=== PATIENT | female | born 1945 | race African-American/Black ===

== ENCOUNTER 2016-12-11 10:04 | Outpatient (CLI) | payer MEDICARE ==
[2016-12-11 10:57] LABS: ALT (SGPT) 30 U/L (8-55); AST (SGOT) 25 U/L (5-34); Albumin 4.1 g/dL (3.4-4.8); Alkaline Phosphatase 92 U/L (40-150); Anion Gap 17 mmol/L (10-20); BUN (Urea Nitrogen) 14 mg/dL (9.8-20.1); Bilirubin, Total 0.5 mg/dL (0.2-1.2); Calc. Creatinine Clearance 0 mL/min (70-130); Calcium 9.2 mg/dL (7.8-10.44); Cardiac Risk 2.6 (Less than 4.5); Chloride 108 mmol/L (98-107); Cholesterol 128 mg/dl (< 200 Desired); Estimated GFR-MDRD 89; Globulin 2.3 g/dL (2.4-3.5); Glucose 129 mg/dL (80-115); HDL Cholesterol 50 mg/dL (>60 Neg Risk); LDL Cholesterol, Calculated 69 mg/dL; Potassium 4.6 mmol/L (3.5-5.1); Protein, Total 6.4 g/dL (6.0-8.3); Sodium 147 mmol/L (136-145); Triglycerides 46 mg/dL (Less than 150)
[2016-12-11 11:24] LABS: Carbon Dioxide 27 mmol/L (23-31)
[2016-12-11 11:41] LABS: Hemoglobin A1c 5.5 % (4.0-6.0)
[2016-12-11 12:58] LABS: #Basophils 0.1 thou/uL (0.0-0.2); #Eosinphils 0.1 thou/uL (0.0-0.7); #Lymphocytes 0.9 thou/uL (1.20-3.40); #Monocytes 0.4 thou/uL (0.11-0.59); #Neutrophils 6.2 thou/uL (1.40-6.50); %Basophils 0.7 % (0.0-1.0); %Eosinophils 1.2 % (0.0-10.0); %Lymphocytes 11.7 % (21.0-51.0); %Monocytes 5.7 % (0.0-10.0); %Neutrophils 80.7 % (42.0-75.0); Hemoglobin 11.7 g/dL (12.0-16.0); Mean Corpuscular HGB CONC 35.1 g/dL (32.0-36.0); Mean Corpuscular Hemoglobin 32.5 pg (27.0-31.0); Mean Corpuscular Volume 92.5 fl (81.0-99.0); Mean Platelet Volume 10.4 fL (7.4-10.4); PLT Morphology Comment Appears Decreased; Platelet Count 32 thou/uL (130-400); RBC Morphology Normal; White Blood Cell (WBC) Count 7.6 thou/uL (4.8-10.8)
== END 2016-12-11 10:05 | disposition home or self-care (01) ==
LOC: HPCALD 10:04
PROVIDERS: ATTEND Family Medicine
DX: E78.5 Hyperlipidemia, unspecified (principal); E11.9 Type 2 diabetes mellitus without complications; I10 Essential (primary) hypertension
CPT/HCPCS: 36415; 80053; 80061; 83036; 85025

== ENCOUNTER 2018-03-15 10:49 | Inpatient (IN) | payer MEDICARE ==
[2018-03-15] MEDS ORDERED: Ondansetron ODT 4 MG TAB PO PRN (16:28)
[2018-03-15] MEDS ORDERED: Acetaminophen 325 MG TAB PO PRN (16:44)
[2018-03-15 17:39] VITALS: BMI 36.1
[2018-03-15] MEDS: Aspirin 81 mg Enteric Coated Tablet PO SCH (21:55)
[2018-03-15] MEDS: Famotidine 20 MG TAB PO SCH (21:55)
[2018-03-15] MEDS: Naproxen 500 MG TAB PO SCH (21:55)
[2018-03-16] MEDS: Naproxen 500 MG TAB PO SCH ×3 (05:26→21:41)
[2018-03-16] MEDS: Famotidine 20 MG TAB PO SCH ×2 (09:08→21:41)
[2018-03-16] MEDS: Amlodipine 10 MG TAB PO SCH (09:22)
[2018-03-16] MEDS: Aspirin 81 mg Enteric Coated Tablet PO SCH ×2 (09:22→21:41)
[2018-03-16] MEDS: Furosemide 20 MG TAB PO SCH (09:22)
[2018-03-16] MEDS: Atorvastatin Calcium 10 MG TAB PO SCH (09:23)
[2018-03-16] MEDS: HYDROcodone/Acetaminophen 10/325 mg Tablet PO PRN (12:59)
[2018-03-16] MEDS: Polyethylene Glycol 3350 17 GM Packet PO PRN (21:41)
[2018-03-17] MEDS: Naproxen 500 MG TAB PO SCH ×3 (05:27→21:10)
[2018-03-17] MEDS: Famotidine 20 MG TAB PO SCH ×2 (10:07→20:59)
[2018-03-17] MEDS: Furosemide 20 MG TAB PO SCH (10:08)
[2018-03-17] MEDS: Aspirin 81 mg Enteric Coated Tablet PO SCH ×2 (10:08→20:59)
[2018-03-17] MEDS: Amlodipine 10 MG TAB PO SCH (10:08)
[2018-03-17] MEDS: Atorvastatin Calcium 10 MG TAB PO SCH (10:08)
[2018-03-17] MEDS: Polyethylene Glycol 3350 17 GM Packet PO PRN (11:27)
[2018-03-18] MEDS: Naproxen 500 MG TAB PO SCH ×3 (05:11→21:45)
[2018-03-18] MEDS: Aspirin 81 mg Enteric Coated Tablet PO SCH ×2 (09:13→21:44)
[2018-03-18] MEDS: Famotidine 20 MG TAB PO SCH ×2 (09:14→21:45)
[2018-03-18] MEDS: Atorvastatin Calcium 10 MG TAB PO SCH (09:14)
[2018-03-18] MEDS: Amlodipine 10 MG TAB PO SCH (09:14)
[2018-03-18] MEDS: Furosemide 20 MG TAB PO SCH (09:14)
[2018-03-18] MEDS: HYDROcodone/Acetaminophen 10/325 mg Tablet PO PRN (10:41)
[2018-03-19] MEDS: Naproxen 500 MG TAB PO SCH ×3 (06:36→22:57)
[2018-03-19] MEDS: Amlodipine 10 MG TAB PO SCH (09:34)
[2018-03-19] MEDS: Atorvastatin Calcium 10 MG TAB PO SCH (09:35)
[2018-03-19] MEDS: Famotidine 20 MG TAB PO SCH ×2 (09:36→22:57)
[2018-03-19] MEDS: Furosemide 20 MG TAB PO SCH (09:36)
[2018-03-19] MEDS: Aspirin 81 mg Enteric Coated Tablet PO SCH ×2 (09:37→22:57)
[2018-03-19] MEDS: HYDROcodone/Acetaminophen 10/325 mg Tablet PO PRN (13:55)
[2018-03-20] MEDS: Naproxen 500 MG TAB PO SCH ×3 (05:46→22:05)
[2018-03-20] MEDS: Famotidine 20 MG TAB PO SCH ×3 (10:09→22:06)
[2018-03-20] MEDS: Atorvastatin Calcium 10 MG TAB PO SCH (10:09)
[2018-03-20] MEDS: Aspirin 81 mg Enteric Coated Tablet PO SCH ×2 (10:10→22:06)
[2018-03-20] MEDS: Amlodipine 10 MG TAB PO SCH (10:10)
[2018-03-20] MEDS: Furosemide 20 MG TAB PO SCH (10:12)
[2018-03-20] MEDS: HYDROcodone/Acetaminophen 10/325 mg Tablet PO PRN (10:22)
[2018-03-21] MEDS: Naproxen 500 MG TAB PO SCH ×2 (05:39→14:22)
[2018-03-21 06:22] VITALS: BP 134/56; TEMP 98.4
--- NOTE | 2018-03-21 07:56 | DIS ---
DATE OF ADMISSION: 03/15/2018 DATE OF DISCHARGE: 03/21/2018 DISCHARGE DIAGNOSES: Status post total right knee replacement, hypertension and hyperlipidemia. PROCEDURES: None. HOSPITAL COURSE: A 72-year-old female who was initially admitted to [facility] in [place] for a right total knee replacement via Dr. Simon transitioned to our facility to participate with physical therapy and occupational therapy. She is to follow up with Dr. Simon within the next couple of weeks. The patient has had minimal pain in regards to the total knee replacement. She has been able to successfully participate with physical therapy and occupational therapy in order to meet her goals to be able to transition to her home setting at this time. The patient will continue her rehab as an outpatient at [facility]. She is ambulatory and able to transfer successfully with minimal discomfort and is amenable to be discharged to her home setting. There were no complications during her stay. Her other comorbidities of hypertension, hyperlipidemia are stable as well. DISPOSITION: The patient will discharge home and follow up with myself in the clinic in a week and will have further physical therapy at [facility]. DISCHARGE MEDICATIONS: Include naproxen p.r.n., atorvastatin 20 mg p.o. at bedtime, aspirin 81 mg p.o. b.i.d., amlodipine/benazepril 10 mg/40 mg p.o. daily and Lasix 20 mg p.o. daily. MTDD
[2018-03-21] MEDS: Atorvastatin Calcium 10 MG TAB PO SCH (08:20)
[2018-03-21] MEDS: Famotidine 20 MG TAB PO SCH (08:20)
[2018-03-21] MEDS: Amlodipine 10 MG TAB PO SCH (08:20)
[2018-03-21] MEDS: Aspirin 81 mg Enteric Coated Tablet PO SCH (08:20)
[2018-03-21] MEDS: Furosemide 20 MG TAB PO SCH (08:20)
[2018-03-21] MEDS: HYDROcodone/Acetaminophen 10/325 mg Tablet PO PRN (08:33)
== END 2018-03-21 16:00 | disposition home health service (06) | DRG 561 ==
LOC: BURMED 15:05
PROVIDERS: ADMIT Family Medicine; ATTEND Family Medicine
DX: Z47.1 Aftercare following joint replacement surgery (principal); Z96.651 Presence of right artificial knee joint; I10 Essential (primary) hypertension; E78.5 Hyperlipidemia, unspecified
CPT/HCPCS: G8978-GP-CJ; G8979-GP-CI

== ENCOUNTER 2018-08-11 10:01 | Emergency (ER) | payer MEDICARE | END 2018-08-11 10:50 | disposition home or self-care (01) | LOC: BURERS 10:01 | DX: H60.91 Unspecified otitis externa, right ear (principal); I10 Essential (primary) hypertension; E78.5 Hyperlipidemia, unspecified | CPT/HCPCS: 99282 ==

== ENCOUNTER 2019-07-18 14:00 | Inpatient (IN) | payer MEDICARE ==
[2019-07-18] MEDS ORDERED: Polyethylene Glycol 3350 17 GM Packet PO PRN (17:44)
[2019-07-18] MEDS ORDERED: Ondansetron ODT 4 MG TAB PO PRN (17:44)
[2019-07-18] MEDS: Atorvastatin Calcium 10 MG TAB PO SCH (21:26)
[2019-07-18] MEDS: Famotidine 20 MG TAB PO SCH (21:26)
[2019-07-18] MEDS: Aspirin 81 mg Enteric Coated Tablet PO SCH (21:27)
[2019-07-18] MEDS: Naproxen 500 MG TAB PO SCH (21:27)
[2019-07-19] MEDS: Lisinopril 20 MG TAB PO SCH (08:54)
[2019-07-19] MEDS: Aspirin 81 mg Enteric Coated Tablet PO SCH ×2 (08:57→21:09)
[2019-07-19] MEDS: Amlodipine 10 MG TAB PO SCH (08:58)
[2019-07-19] MEDS: Naproxen 500 MG TAB PO SCH ×3 (08:59→21:10)
[2019-07-19] MEDS ORDERED: FLU VACC QS2019-20(6MOS UP)/PF 60 MCG/0.5 ML SYRINGE IM ONE (09:00)
[2019-07-19] MEDS: Cyanocobalamin (Vitamin B-12) 1,000 MCG TAB PO SCH (09:01)
[2019-07-19] MEDS: Famotidine 20 MG TAB PO SCH ×2 (09:01→21:09)
[2019-07-19] MEDS: Atorvastatin Calcium 10 MG TAB PO SCH (21:09)
[2019-07-20] MEDS: Naproxen 500 MG TAB PO SCH ×3 (08:39→20:32)
[2019-07-20] MEDS: Cyanocobalamin (Vitamin B-12) 1,000 MCG TAB PO SCH (08:39)
[2019-07-20] MEDS: Famotidine 20 MG TAB PO SCH ×2 (08:39→20:31)
[2019-07-20] MEDS: Amlodipine 10 MG TAB PO SCH (08:40)
[2019-07-20] MEDS: Aspirin 81 mg Enteric Coated Tablet PO SCH ×2 (08:40→20:32)
[2019-07-20] MEDS: Lisinopril 20 MG TAB PO SCH (08:40)
[2019-07-20] MEDS: Atorvastatin Calcium 10 MG TAB PO SCH (20:32)
[2019-07-21] MEDS: Lisinopril 20 MG TAB PO SCH (08:44)
[2019-07-21] MEDS: Famotidine 20 MG TAB PO SCH ×2 (08:46→20:38)
[2019-07-21] MEDS: Amlodipine 10 MG TAB PO SCH (08:46)
[2019-07-21] MEDS: Cyanocobalamin (Vitamin B-12) 1,000 MCG TAB PO SCH (08:47)
[2019-07-21] MEDS: Naproxen 500 MG TAB PO SCH ×3 (08:47→20:37)
[2019-07-21] MEDS: Aspirin 81 mg Enteric Coated Tablet PO SCH ×2 (08:47→20:38)
[2019-07-21] MEDS: HYDROcodone/Acetaminophen 5/325 mg Tablet PO PRN (08:47)
[2019-07-21 09:58] VITALS: BMI 36.6
[2019-07-21] MEDS: Atorvastatin Calcium 10 MG TAB PO SCH (20:37)
[2019-07-22] MEDS: Famotidine 20 MG TAB PO SCH ×2 (08:16→20:54)
[2019-07-22] MEDS: Naproxen 500 MG TAB PO SCH ×3 (08:17→20:54)
[2019-07-22] MEDS: Lisinopril 20 MG TAB PO SCH (08:17)
[2019-07-22] MEDS: Cyanocobalamin (Vitamin B-12) 1,000 MCG TAB PO SCH (08:17)
[2019-07-22] MEDS: Aspirin 81 mg Enteric Coated Tablet PO SCH ×2 (08:18→20:54)
[2019-07-22] MEDS: Amlodipine 10 MG TAB PO SCH (08:18)
[2019-07-22] MEDS: HYDROcodone/Acetaminophen 5/325 mg Tablet PO PRN (11:28)
[2019-07-22] MEDS: Atorvastatin Calcium 10 MG TAB PO SCH (20:54)
[2019-07-23] MEDS: Amlodipine 10 MG TAB PO SCH (09:19)
[2019-07-23] MEDS: Cyanocobalamin (Vitamin B-12) 1,000 MCG TAB PO SCH (09:19)
[2019-07-23] MEDS: Naproxen 500 MG TAB PO SCH ×3 (09:19→21:07)
[2019-07-23] MEDS: Famotidine 20 MG TAB PO SCH ×2 (09:19→21:08)
[2019-07-23] MEDS: Aspirin 81 mg Enteric Coated Tablet PO SCH ×2 (09:20→21:07)
[2019-07-23] MEDS: Lisinopril 20 MG TAB PO SCH (09:20)
[2019-07-23] MEDS: Atorvastatin Calcium 10 MG TAB PO SCH (21:08)
[2019-07-24] MEDS: Naproxen 500 MG TAB PO SCH ×3 (09:27→21:36)
[2019-07-24] MEDS: Famotidine 20 MG TAB PO SCH ×2 (09:27→21:35)
[2019-07-24] MEDS: Amlodipine 10 MG TAB PO SCH (09:28)
[2019-07-24] MEDS: Cyanocobalamin (Vitamin B-12) 1,000 MCG TAB PO SCH (09:28)
[2019-07-24] MEDS: Aspirin 81 mg Enteric Coated Tablet PO SCH ×2 (09:28→21:36)
[2019-07-24] MEDS: Lisinopril 20 MG TAB PO SCH (09:29)
[2019-07-24] MEDS: Atorvastatin Calcium 10 MG TAB PO SCH (21:36)
[2019-07-25 06:17] VITALS: TEMP 98.4
[2019-07-25] MEDS: Amlodipine 10 MG TAB PO SCH (08:36)
[2019-07-25] MEDS: Lisinopril 20 MG TAB PO SCH (08:42)
[2019-07-25] MEDS: Famotidine 20 MG TAB PO SCH (08:43)
[2019-07-25] MEDS: Cyanocobalamin (Vitamin B-12) 1,000 MCG TAB PO SCH (08:43)
[2019-07-25] MEDS: Aspirin 81 mg Enteric Coated Tablet PO SCH (08:43)
[2019-07-25] MEDS: Naproxen 500 MG TAB PO SCH (08:43)
[2019-07-25 08:44] VITALS: BP 125/60
--- NOTE | 2019-07-25 10:54 | DIS ---
DATE OF ADMISSION: 07/18/2019 DATE OF DISCHARGE: 07/25/2019 ADMISSION DIAGNOSIS: Status post left hip replacement with gait instability. SECONDARY DIAGNOSES: Hypertension, dyslipidemia, and vitamin D deficiency. PROCEDURES: None. HOSPITAL COURSE: This 73-year-old female transitioned to our facility status post admission at [facility] in [place], where she underwent an elective left total hip replacement via Dr. Jasen Simon on 07/15/2019. The patient had an uneventful postop and transitioned here to participate with physical therapy and occupational therapy. She has been able to ambulate with assistance of a walker and has improved in regard to her functional status with the assistance of physical therapy. She had no complications during her stay and was resumed on her usual medications. She has decided to go stay with her son in [place] with pursuance of home health there for further physical therapy. She has the appropriate durable medical equipment to facilitate this transition. She feels well and is appropriate for discharge at this time. DISPOSITION: The patient will be discharged to live with her son in [place]. She may follow up with myself in the clinic in the next [address] Simon as scheduled. She is being set up with [facility] for further physical therapy. DISCHARGE MEDICATIONS: 1. Aspirin 81 mg p.o. b.i.d. 2. Amlodipine and benazepril 10/20 mg daily. 3. Hydrocodone 5/325 q.4 hours p.r.n. 4. Cyanocobalamin 1 tab daily. 5. Cholecalciferol 125 mcg daily. 6. Atorvastatin 20 mg at bedtime. 7. Naproxen 500 mg t.i.d. 8. MiraLAX 17 g daily p.r.n. 9. Zofran 4 mg q.6 hours. Job ID: [id number]
== END 2019-07-25 12:35 | disposition home or self-care (01) | DRG 561 ==
LOC: BURMED 15:00
PROVIDERS: ADMIT Family Medicine; ATTEND Family Medicine
DX: Z47.1 Aftercare following joint replacement surgery (principal); Z96.642 Presence of left artificial hip joint; R53.81 Other malaise; R26.89 Other abnormalities of gait and mobility; I10 Essential (primary) hypertension; E78.5 Hyperlipidemia, unspecified; E55.9 Vitamin D deficiency, unspecified

== ENCOUNTER 2020-09-22 19:16 | Emergency (ER) | payer MEDICARE ==
[2020-09-22 19:44] LABS: #Basophils 0.1 thou/uL (0.0-0.2); #Lymphocytes 1.6 thou/uL (1.20-3.40); #Monocytes 0.5 thou/uL (0.11-0.59); #Neutrophils 6.7 thou/uL (1.40-6.50); %Basophils 1.3 % (0.0-1.0); %Eosinophils 0.4 % (0.0-10.0); %Lymphocytes 17.6 % (21.0-51.0); %Monocytes 5.6 % (0.0-10.0); %Neutrophils 75.1 % (42.0-75.0); Mean Corpuscular HGB CONC 32.8 g/dL (32.0-36.0); Mean Corpuscular Hemoglobin 31.3 pg (27.0-31.0); Mean Corpuscular Volume 95.5 fL (78.0-98.0); Mean Platelet Volume 8.8 fL (7.4-10.4); Platelet Count 197 thou/uL (130-400); RBC Distribution Width 11.4 % (11.5-14.5); Red Blood Cell (RBC) Count 3.84 mill/uL (4.20-5.40); White Blood Cell (WBC) Count 8.9 thou/uL (4.8-10.8)
[2020-09-22] MEDS ORDERED: Ketorolac Tromethamine 30 MG/ML VIAL ONE (19:46)
[2020-09-22 20:00] LABS: ALT (SGPT) 16 U/L (8-55); AST (SGOT) 18 U/L (5-34); Albumin 4.2 g/dL (3.4-4.8); Alkaline Phosphatase 90 U/L (40-110); Anion Gap 15 mmol/L (10-20); BUN (Urea Nitrogen) 21 mg/dL (9.8-20.1); Bilirubin, Total 0.6 mg/dL (0.2-1.2); Calc. Creatinine Clearance 0 mL/min (70-130); Calcium 9.6 mg/dL (7.8-10.44); Carbon Dioxide 26 mmol/L (23-31); Chloride 106 mmol/L (98-107); Globulin 3.5 g/dL (2.4-3.5); Glucose 127 mg/dL (83-110); Potassium 3.6 mmol/L (3.5-5.1); Protein, Total 7.7 g/dL (5.8-8.1); Sodium 143 mmol/L (136-145)
[2020-09-22 20:17] LABS: CKMB 1.4 ng/mL (0-6.6)
[2020-09-22] MEDS ORDERED: Nitroglycerin 0.4 MG TAB 1 EACH ONE (23:01)
[2020-09-22] MEDS ORDERED: Acetaminophen 500 MG TAB ONE (23:01)
== END 2020-09-22 23:20 | disposition still patient (30) ==
LOC: BURERS 19:16
DX: I20.0 Unstable angina (principal); I10 Essential (primary) hypertension; E78.5 Hyperlipidemia, unspecified; Z79.82 Long term (current) use of aspirin; Z79.899 Other long term (current) drug therapy
CPT/HCPCS: 71045; 80053; 82553; 84484; 85025; 93005; 96374; J1885

== ENCOUNTER 2022-09-29 11:18 | Emergency (ER) | payer MEDICARE ==
[2022-09-29 11:51] LABS: Bilirubin Large (Negative); Blood, Urine Trace (Negative); Clarity Cloudy (Clear); Glucose, Urine (Dipstick) Negative (Negative); Ketone, Urine 15 mg/dL (Negative); Leukocyte Negative (Negative); Nitrite Positive (Negative); Protein, Urine (Dipstick) > or equal to 300 mg/dL (Neg-Trace); pH, Urine 5.5 (5.0-9.0)
[2022-09-29 12:06] LABS: Hemoglobin 13.8 g/dL (12.0-16.0); Mean Corpuscular HGB CONC 33.9 g/dL (32.0-36.0); Mean Corpuscular Hemoglobin 31.6 pg (27.0-31.0); Mean Corpuscular Volume 93.2 fl (78.0-98.0); Mean Platelet Volume 16.8 fL (7.4-10.4); Platelet Count 98 10x3/uL (130-400); RBC Distribution Width 10.6 % (11.5-14.5); Red Blood Cell (RBC) Count 4.35 mill/uL (4.20-5.40); White Blood Cell (WBC) Count 6.4 10x3/uL (4.8-10.8)
[2022-09-29 12:07] LABS: ALT (SGPT) 18 U/L (8-55); AST (SGOT) 22 U/L (5-34); Albumin 4.3 g/dL (3.4-4.8); Alkaline Phosphatase 76 U/L (40-110); Anion Gap 16 mmol/L (10-20); BUN (Urea Nitrogen) 20 mg/dL (9.8-20.1); Bilirubin, Total 0.8 mg/dL (0.2-1.2); Calc. Creatinine Clearance 0 mL/min (70-130); Calcium 10.2 mg/dL (7.8-10.44); Carbon Dioxide 28 mmol/L (23-31); Chloride 97 mmol/L (98-107); Estimated GFR 48; Globulin 3.4 g/dL (2.4-3.5); Glucose 143 mg/dL (83-110); Lipase 14 U/L (8-78); Potassium 4.2 mmol/L (3.5-5.1); Protein, Total 7.7 g/dL (5.8-8.1); Sodium 137 mmol/L (136-145)
[2022-09-29 12:12] LABS: Bacteria/HPF 3+ HPF (None Seen); Mucous/LPF 4+ LPF (<2+); RBC/HPF 0-3 HPF (0-3); Squamous Epithelial 0-3 HPF (0-3)
[2022-09-29 12:30] LABS: #Basophils 0.1 thou/uL (0.0-0.2); #Monocytes 0.9 thou/uL (0.11-0.59); #Neutrophils 4.9 thou/uL (1.40-6.50); %Eosinophils 0.2 % (0.0-10.0); %Lymphocytes 8.2 % (21.0-51.0); %Monocytes 14.4 % (0.0-10.0); %Neutrophils 76.3 % (42.0-75.0); MDiff Complete? YES
[2022-09-29 12:31] LABS: #Lymphocytes 0.5 thou/uL (1.20-3.40)
[2022-09-29 12:32] LABS: Giant Platelets SLIGHT; Platelet Clumps SLIGHT
[2022-09-29] MEDS ORDERED: Ondansetron PF 4 MG/2 ML Vial ONE (12:33)
[2022-09-29 14:40] LABS: Lactic Acid 0.9 mmol/L (0.5-2.2)
[2022-09-29] MEDS ORDERED: Piperacillin/Tazobactam 4.5 GM VIAL ONE (15:11)
== END 2022-09-29 16:45 | disposition short-term general hospital (02) ==
LOC: BURERS 11:18
DX: K56.609 Unspecified intestinal obstruction, unspecified as to partial versus complete obstruction (principal); I10 Essential (primary) hypertension; E78.5 Hyperlipidemia, unspecified; Z79.899 Other long term (current) drug therapy; Z79.82 Long term (current) use of aspirin
CPT/HCPCS: 74176; 80053; 81003; 81015; 83605; 83690; 85025; 93005; 96365; 96375; J2405; J2543